=== PATIENT | male | born 1955 | race American Indian/Alaskan Native ===

== ENCOUNTER 2021-12-01 07:39 | Emergency (ER) | payer MEDICAID ==
[2021-12-01] MEDS ORDERED: SODIUM CHLORIDE 0.9% 1000 ML 1,000 ML ONE (09:27)
[2021-12-01] MEDS ORDERED: MORPHINE 4 MG/1 ML INJ IV ONE (10:42)
[2021-12-01] MEDS ORDERED: SODIUM CHLORIDE 0.9% 1000 ML 1,000 ML IV ONE ×2 (10:42→13:30)
[2021-12-01] MEDS ORDERED: METOCLOPRAMIDE 10 MG/2 ML INJ IV ONE (10:42)
[2021-12-01 10:57] VITALS: BP 145/65
[2021-12-01 12:05] LABS: Hematocrit 35.7 % (35.5-45.6); Hemoglobin 11.7 gm/dl (11.8-15.2); Mean Corpuscular HGB Conc 33 % (32-34); Mean Corpuscular Volume 86 fl (84-94); Platelet Count 129 K/mm3 (140-440); Red Blood Count 4.13 M/mm3 (3.65-5.03); Red Cell Distribution Width 14.9 % (13.2-15.2)
--- NOTE | 2021-12-01 12:07 | Cat Scan Report ---
CT head/brain wo con INDICATION: headache. TECHNIQUE: CT head. All CT scans at this location are performed using CT dose reduction for ALARA by means of automated exposure control. COMPARISON: None. FINDINGS: Intracranial: Gloria-white matter differentiation is maintained. No intracranial hemorrhage. No extra a xial collection. No hydrocephalus. No herniation. Sinuses: Mild mucosal thickening in the maxillary sinuses. Overall, paranasal sinuses and mastoid air cells are well-aerated. Orbits: Globes are intact. Osseous structures: Remote left lamina papyracea fracture. No acute fracture. IMPRESSION: 1. No acute intracranial abnormality. Signer Name: Gerald Reyes MD Signed: 12/01/2021 12:02 PM Workstation Name: [id number]
[2021-12-01 12:22] LABS: RBC,Urine < 1.0 /HPF (0.0-6.0); WBC,Urine < 1.0 /HPF (0.0-6.0)
[2021-12-01 12:30] LABS: Color,Urine Straw (Yellow)
[2021-12-01 12:32] LABS: Calcium 8.5 mg/dL (8.4-10.2)
--- NOTE | 2021-12-01 14:41 | Emergency Department Report ---
ED Headache HPI - General Chief Complaint: Headache Stated Complaint: CHEST PAIN Time Seen by Provider: 12/01/21 07:45 Source: patient, RN notes reviewed Exam Limitations: no limitations - History of Present Illness Initial Comments: 66-year-old male presents to the ED complaining of a headache x1 day. States that he has a history of diabetes,COPD.chronic kidney disease,CHF and hypertension. Patient states that headache is a 10 out of 10 and he was unable to sleep last night. He has a known history of alcohol abuse. Last drinking was yesterday. Patient was recently evaluated at [facility] and at discharge for alcohol abuse on yesterday . Patient is alert and oriented x3. No acute distress noted no ill appearance noted. Patient denies any nausea or vomiting. Denies any blurry vision. Associated Symptoms: denies symptoms Allergies/Adverse Reactions: Allergies latex Allergy (Intermediate, Verified 12/01/21 07:52) Rash ED Review of Systems ROS: Stated complaint: CHEST PAIN Other details as noted in HPI Constitutional: denies: chills, fever Eyes: denies: eye pain, eye discharge, vision change ENT: denies: ear pain, throat pain Respiratory: denies: cough, shortness of breath, wheezing Cardiovascular: denies: chest pain, palpitations Endocrine: no symptoms reported Gastrointestinal: denies: abdominal pain, nausea, diarrhea Genitourinary: denies: urgency, dysuria Musculoskeletal: denies: back pain, joint swelling, arthralgia Skin: denies: rash, lesions Neurological: denies: headache, weakness, paresthesias Psychiatric: denies: anxiety, depression Hematological/Lymphatic: denies: easy bleeding, easy bruising ED Past Medical Hx - Past Medical History Previous Medical History?: Yes Hx Hypertension: Yes Hx Diabetes: Yes Hx COPD: Yes - Surgical History Past Surgical History?: No - Social History Smoking Status: Current Every Day Smoker Substance Use Type: Alcohol ED Physical Exam - General Limitations: No Limitations General appearance: alert, in no apparent distress - Head Head exam: Present: atraumatic, normocephalic - Eye Eye exam: Present: normal appearance - ENT ENT exam: Present: mucous membranes moist - Neck Neck exam: Present: normal inspection - Respiratory Respiratory exam: Present: normal lung sounds bilaterally. Absent: respiratory distress - Cardiovascular Cardiovascular Exam: Present: regular rate, normal rhythm. Absent: systolic murmur, diastolic murmur, rubs, gallop - GI/Abdominal GI/Abdominal exam: Present: soft, normal bowel sounds - Rectal Rectal exam: Present: deferred - Extremities Exam Extremities exam: Present: normal inspection - Back Exam Back exam: Present: normal inspection - Neurological Exam Neurological exam: Present: alert, oriented X3 - Psychiatric Psychiatric exam: Present: normal affect, normal mood - Skin Skin exam: Present: warm, dry, intact, normal color. Absent: rash ED Course Vital Signs 12/01/21 12/01/21 12/01/21 07:47 10:56 10:57 Temperature 98.6 F 98.4 F Pulse Rate 88 57 L Respiratory 18 17 Rate Blood Pressure 130/80 145/65 [Left] O2 Sat by Pulse 98 98 Oximetry 12/01/21 11:03 Temperature Pulse Rate Respiratory 17 Rate Blood Pressure [Left] O2 Sat by Pulse 97 Oximetry ED Medical Decision Making - Lab Data Result diagrams: 12/01/21 10:54 12/01/21 10:54 - Medical Decision Making 66-year-old male presents to the ED complaining of a headache x1 day. States that he has a history of diabetes , hypertension,COPD,chronic kidney disease,and CHF. Patient states that headache is a 10 out of 10 and he was unable to sleep last night. He has a known history of alcohol abuse. Last drinking was yesterday. Patient was recently evaluated at [facility] and at discharge for alcohol abuse on yesterday . Patient is alert and oriented x3. No acute distress noted no ill appearance noted. Patient denies any nausea or vomiting. Denies any blurry vision. Physical examination is unremarkable patie nt is resting quietly with his eyes closed. Patient pertinent lab BUN was 37 and .2.1 likely due to patient chronic kidney disease. She has a follow-up appointment in the at [facility]. Rechecked the patient is resting quietly , comfortable and feeling better. I discussed the results of diagnostic study, my clinical impression and the plan for further treatment with the patient. Patient agrees with plan and discharge at this present time. All question addressed. I have given the patient instruction regarding a diagnosis ,expectation ,follow- up and return precaution. I explained to the patient that emergent condition may arise and to return to the ED for new worsen and any new persisting condition. I have explained the importance of following up with the primary care physician or referral physician listed below has instructed. The patient verbalized understanding of discharge instruction. Abnormal Lab Results 12/01/21 12/01/21 12/01/21 10:54 10:54 11:09 WBC 9.3 RBC 4.13 Hgb 11.7 L Hct 35.7 MCV 86 MCH 28 MCHC 33 RDW 14.9 Plt Count 129 L Sodium 143 Potassium 5.1 H Chloride 105.6 Carbon Dioxide 24 Anion Gap 19 BUN 37 H Creatinine 2.1 H Estimated GFR 39 BUN/Creatinine Ratio 18 Glucose 342 H Calcium 8.5 Total Bilirubin 0.30 AST 33 ALT 38 Alkaline Phosphatase 142 H Total Protein 6.1 L Albumin 4.0 Albumin/Globulin Ratio 1.9 Urine Color Straw Urine Turbidity Clear Specific [place] (Man) 1.010 Ur Protein (Man) Negative Ur Ketones (Man) Negative Ur Nitrite (Man) Negative Ur Reducing Substances Not Reportable Urine Bilirubin (Man) Negative Urine Ictotest Not Reportable Leukocyte Esterase (Man) Negative Urine WBC (Auto) < 1.0 Urine RBC (Auto) < 1.0 Urine RBC (Manual) Negative Critical care attestation.: If time is entered above; I have spent that time in minutes in the direct care of this critically ill patient, excluding procedure time. ED Disposition Clinical Impression: Headache Qualifiers: Headache type: unspecified Headache chronicity pattern: episodic headache Intractability: not intractable Qualified Code(s): R51.9 - Headache, unspecified Disposition: 01 HOME / SELF CARE / HOMELESS Is pt being admited?: No Does the pt Need Aspirin: No Condition: Stable Additional Instructions: Take medication as prescribed Return to the ED for any worsening symptom Keep appointment tomorrow with [facility] Referrals: IFEOMA ERWIN MD [Primary Care Provider] - 3-5 Days [facility] [Provider Group] - 3-5 Days Time of Disposition: 15:07
== END 2021-12-01 15:34 | disposition home or self-care (01) ==
LOC: ED 07:39
DX: R51.9 Headache, unspecified (principal); I10 Essential (primary) hypertension; E11.9 Type 2 diabetes mellitus without complications; J44.1 Chronic obstructive pulmonary disease with (acute) exacerbation; F17.200 Nicotine dependence, unspecified, uncomplicated
CPT/HCPCS: 36415; 70450; 80053; 81001; 82962; 85027; 96361; 96374; 96375; 99284; J2270; J2765; J7030